=== PATIENT | male | born 1990 | race Caucasian/White ===

== ENCOUNTER 2016-10-13 13:23 | Emergency (ER) | payer BC, OTHER ==
[2016-10-13 13:37] VITALS: BP 129/72; PULSE 82; TEMP 98.5; BMI 24.2
--- NOTE | 2016-10-13 14:21 | PDOC ---
History of Present Illness - General History Source: Patient Exam Limitations: No Limitations - History of Present Illness Initial Comments: 10/13/16 14:35 Patient is a 26 year old male with no significant past medical history who presents to the ED with laceration to the left foot. Patient states that he stepped on broken glass barefoot. He notes that he is able to flex and wiggle the toes. Patient states that his Tetanus shot was last year. Patient denies fever, chills, nausea, vomiting, abdominal pain. He denies numbness or tingling of the left foot. <Sarah Jack - Last Filed: 10/13/16 17:01> - General History Source: Patient Exam Limitations: No Limitations <Gavi Smith - Last Filed: 10/14/16 11:13> - General Chief Complaint: Injury Stated Complaint: INJURY TO LEFT FOOT Time Seen by Provider: 10/13/16 13:26 Past History <Sarah Jack - Last Filed: 10/13/16 17:01> - Past Medical History Other medical history: pt denies - Immunization History Immunization Up to Date: Yes - Psycho/Social/Smoking Cessation Hx Anxiety: No Suicidal Ideation: No Smoking History: Never smoked Hx Alcohol Use: Yes (occassional) Drug/Substance Use Hx: No Substance Use Type: None <Gavi Smith - Last Filed: 10/14/16 11:13> - Past Medical History Allergies/Adverse Reactions: Allergies Allergy/AdvReac Type Severity Reaction Status Date / Time No Known Allergies Allergy Verified 10/13/16 13:25 Home Medications: Ambulatory Orders Cephalexin [Keflex] 250 mg PO Q6H #28 capsule 10/13/16 Tramadol HCl 50 mg PO TID PRN #15 tablet MDD 3 10/13/16 Review of Systems - Review of Systems Able to Perform ROS?: Yes Comments:: 10/13/16 14:36 GENERAL/CONSTITUTIONAL: No: fever, chills, weakness, loss of appetite. HEAD, EYES, EARS, NOSE AND THROAT: No: change in vision, ear pain, discharge, sore throat, throat swelling. CARDIOVASCULAR: No: chest pain, lightheadedness, palpitations, syncope RESPIRATORY: No: cough, shortness of breath, wheezing, hemoptysis, stridor. GASTROINTESTINAL: No: nausea, vomiting, abdominal cramping, diarrhea, rectal bleeding, constipation. GENITOURINARY: No: dysuria, hematuria, frequency, urgency, flank pain. MUSCULOSKELETAL: No: back pain, neck pain, joint pain, muscle swelling or pain SKIN: +laceration to the dorsum of the left foot. No: pallor, rash or easy bruising. NEUROLOGIC: No: headache, vertigo, paresthesias, weakness ENDOCRINE: No: unexplained weight gain or loss HEMATOLOGIC/LYMPHATIC: No: anemia, easy bleeding, swelling nodes <Sarah Jack - Last Filed: 10/13/16 17:01> *Physical Exam - Vital Signs Last Vital Signs Temp Pulse Resp BP Pulse Ox 98.5 F 82 18 129/72 100 10/13/16 13:24 10/13/16 13:24 10/13/16 13:24 10/13/16 13:24 10/13/16 13:24 - Physical Exam Comments: 10/13/16 14:53 GENERAL: The patient is in no acute distress. HEAD: Normal with no signs of trauma. EYES: PERRLA, EOMI, sclera anicteric, conjunctiva clear. ENT: Ears normal, nares patent, oropharynx clear without exudates. Moist mucous membranes. NECK: Normal range of motion, supple without lymphadenopathy, JVD, or masses. LUNGS: Breath sounds equal, clear to auscultation bilaterally. No wheezes, and no crackles. HEART:Regular rate and rhythm, normal S1 and S2 without murmur, rub or gallop. ABDOMEN: Soft, nontender, normoactive bowel sounds. No guarding, no rebound. EXTREMITIES: (+)capillary refill, bilateral pedal pulses 2+. Normal range of motion, no edema. No clubbing or cyanosis. No erythema, or tenderness. NEUROLOGICAL: Cranial nerves II through XII grossly intact. Normal speech. No focal neurological deficits. MUSCULOSKELETAL: Back nontender to palpation, no CVA tenderness SKIN: (+)5 cm laceration to the bottom of the left foot. Warm, Dry, normal turgor, no rashes. <Sarah Jack - Last Filed: 10/13/16 17:01> - Vital Signs Last Vital Signs Temp Pulse Resp BP Pulse Ox 98.5 F 82 18 129/72 100 10/13/16 13:24 10/13/16 13:24 10/13/16 13:24 10/13/16 13:24 10/13/16 13:24 <Gavi Smith - Last Filed: 10/14/16 11:13> Procedures - Laceration/Wound Repair Left Plantar Foot Wound Length: 2.6 to 5.0 cm Wound Explored: clean Wound's Depth, Shape: into muscle Irrigated w/ Saline: Yes Betadine Prep: Yes Anesthesia: 1% Lidocaine Amount of Anesthetic (ccs): 4 Wound Debrided: minimal Wound Repaired With: Sutures Suture Size/Type: 3:0, nylon Number of Sutures: 5 Layer Closure: No Sterile Dressing Applied: Yes Splint Applied: No <Gavi Smith - Last Filed: 10/14/16 11:13> Medical Decision Making - Medical Decision Making 10/13/16 16:46 Pt s/p laceration of the left foot after stepping on a glass bottle Laceration 2cm, v shaped 5 Sutures placed Very challenging as pt very sensitive and it was difficult to thoroughly anesthetize Tetanus UTD 10/13/16 18:15 Pt discharge to home Bulky dressing placed on foot for protection Pt given crutches Pt asked to monitor for signs of infection Antibiotics and pain medications as needed 10/14/16 11:04 <Gavi Smith - Last Filed: 10/14/16 11:13> *DC/Admit/Observation/Transfer - Attestations Scribe Attestion: 10/13/16 14:36 Documentation prepared by ELI Fuentes, acting as ophthalmic medical technician for Gavi Smith MD. <Sarah Jack - Last Filed: 10/13/16 17:01> - Discharge Dispostion Admit: No <Gavi Smith - Last Filed: 10/14/16 11:13> Diagnosis at time of Disposition: Laceration of foot Qualifiers: Encounter type: initial encounter Laterality: left Qualified Code(s): S91.312A - Laceration without foreign body, left foot, initial encounter - Discharge Dispostion Disposition: HOME Condition at time of disposition: Stable - Prescriptions Prescriptions: Cephalexin [Keflex] 250 mg PO Q6H #28 capsule Tramadol HCl 50 mg PO TID PRN #15 tablet MDD 3 PRN Reason: Pain - Patient Instructions Printed Discharge Instructions: DI for Suture Removal, DI for Laceration Repair -- Simple Additional Instructions: Thank you for coming in to the ER today Please keep dressing applied for 24 hours Please avoid getting your foot wet or soaked for 48 hours Sutures to remain in place for at least 10 days Please use crutches as much as is possible to avoid re injurying your foot Please take pain medications as prescribed and antibiotics as prescribed You should also apply a topical antibacterial ointment directly to your wound twice daily Return to the ER for any signs of infection, red skin around your laceration, warmth, drainage, increased pain - Post Discharge Activity Work/School Note: Back to Work
[2016-10-13] MEDS ORDERED: LIDOCAINE HCL 1%, 10 MG/ML (20ML VIAL) ONE (15:32)
== END 2016-10-13 17:11 | disposition home or self-care (01) ==
LOC: FER 13:23
PROC: 0HQNXZZ Repair Left Foot Skin, External Approach (ICD-10-PCS; principal; 2016-10-13)
DX: S91.312A Laceration without foreign body, left foot, initial encounter (principal); W25.XXXA Contact with sharp glass, initial encounter; Y93.89 Activity, other specified; Y92.9 Unspecified place or not applicable
CPT/HCPCS: 12002-25; 73630-TC-LT; 99282-25

== ENCOUNTER 2021-08-06 21:48 | Day surgery (SDC) | payer OTHER ==
[2021-08-06] MEDS ORDERED: SODIUM CHLORIDE 1,000 ML IV ONE (22:13)
[2021-08-06] MEDS ORDERED: morphine CARPU-JECT 2 MG/1 ML DISP.SYRIN IVPUSH ONE (22:13)
[2021-08-06] MEDS ORDERED: ONDANSETRON 4 MG/2 ML VIAL IVPB ONE (22:14)
[2021-08-06] MEDS ORDERED: morphine SULFATE 4 MG/ML VIAL ONE (22:23)
[2021-08-06] MEDS ORDERED: ONDANSETRON 4 MG/2 ML VIAL ONE (22:23)
[2021-08-06 22:49] LABS: ALBUMIN 4.9 g/dl (3.4-5.0); BILIRUBIN,TOTAL 1.2 mg/dl (0.2-1); CALCIUM 10.1 mg/dl (8.5-10); TOT PROT 8.1 g/dl (6.4-8.2)
[2021-08-06] MEDS ORDERED: HYDROmorphone HCL CARPU-JECT 1 MG/1 ML DISP.SYRIN IVPUSH ONE (23:01)
[2021-08-06] MEDS ORDERED: HYDROmorphone HCL/PF 1 MG/ML VIAL ONE (23:02)
[2021-08-06 23:47] LABS: BASO % 0.1 % (0-2.0); EOS % 0.1 % (0-4.5); MCHC 35.8 g/dl (32.0-35.9)
[2021-08-06 23:53] LABS: HEMATOCRIT 43.5 % (35.4-49); HEMOGLOBIN 15.6 GM/dL (11.7-16.9); LYMPH % 4.5 % (8-40); MCH 28.8 pg (25.7-33.7); MEAN CELL VOLUME 80.2 fl (80-96); MEAN PLT VOLUME 7.8 fl (7.5-11.1); MONO % 7.7 % (3.8-10.2); NEUT % 87.6 % (42.8-82.8); PLATELET COUNT 211 10^3/uL (134-434); RBC 5.42 M/mm3 (4.00-5.60); RDW 13.1 % (11.9-15.9); WHITE BLOOD COUNT 14.5 K/mm3 (4.0-10.0)
[2021-08-07] MEDS ORDERED: VANCOMYCIN 1 GM in D5W (PRE-DOCKED) 1,000 MG/250 ML IVPB ONE (00:03)
[2021-08-07] MEDS ORDERED: PIPERACILLIN/TAZOBACTAM 4.5 GM VIAL IVPB ONE ×3 (00:03→09:04)
[2021-08-07] MEDS ORDERED: PIPERACILLIN/TAZOB 4.5 GM 4.5 GM in DEXTROSE 5%-WATER 100 ML IVPB ONE (00:03)
[2021-08-07] MEDS ORDERED: VANCOMYCIN 1,000 MG VIAL (RESTRICTED TO ID ONLY) ONE (00:03)
[2021-08-07] MEDS ORDERED: HYDROmorphone HCL CARPU-JECT 1 MG/1 ML DISP.SYRIN IVPUSH ONE (00:17)
[2021-08-07] MEDS ORDERED: HYDROmorphone HCL/PF 1 MG/ML VIAL ONE (00:18)
[2021-08-07] MEDS ORDERED: ACETAMINOPHEN 1000 MG/100 ML BAG IVPB PRN ×2 (00:21→17:20)
[2021-08-07] MEDS ORDERED: DEXTROSE 5%-0.45% SALINE 1,000 ML IV SCH ×2 (00:30→17:20)
[2021-08-07 02:25] VITALS: BMI 25.2
[2021-08-07] MEDS ORDERED: morphine SULFATE 4 MG/ML VIAL IVPUSH PRN (03:52)
[2021-08-07] MEDS ORDERED: DEXTROSE 5%-WATER 100 ML IVPB ONE ×2 (06:33→09:03)
[2021-08-07] MEDS: PIPERACILLIN/TAZOB 4.5 GM 4.5 GM in DEXTROSE 5%-WATER 100 ML IVPB SCH ×2 (06:35→10:08)
[2021-08-07 07:36] LABS: INR 1.47 (0.83-1.09)
[2021-08-07 07:44] LABS: CALCIUM 8.7 mg/dl (8.5-10); CREATININE 1.1 mg/dl (0.55-1.3)
[2021-08-07] MEDS ORDERED: ROCURONIUM BROMIDE 50 MG/5 ML SYRINGE ONE (13:23)
[2021-08-07] MEDS ORDERED: DEXAMETHASONE SOD PHOSPHATE 4 MG/1 ML VIAL ONE (13:23)
[2021-08-07] MEDS ORDERED: KETOROLAC TROMETHAMINE 30 MG/1 ML VIAL ONE (13:23)
[2021-08-07] MEDS ORDERED: fentaNYL CITRATE 250 MCG/5 ML VIAL ONE (13:23)
[2021-08-07] MEDS ORDERED: LIDOCAINE HCL/PF 2% SDV 5ML VIAL ONE (13:23)
[2021-08-07] MEDS ORDERED: MIDAZOLAM HCL 2 MG/2 ML SINGLE DOSE VIAL ONE ×2 (13:23)
[2021-08-07] MEDS ORDERED: ONDANSETRON 4 MG/2 ML VIAL ONE ×2 (13:23→15:43)
[2021-08-07] MEDS ORDERED: PROPOFOL 20 ML ONE ×2 (13:23→14:54)
[2021-08-07] MEDS ORDERED: BUPIVACAINE HCL 50 ML ONE (13:56)
[2021-08-07] MEDS ORDERED: NEOSTIGMINE METHYLSULFATE 0.5 MG/1 ML - 10 ML MDV ONE (14:52)
[2021-08-07] MEDS ORDERED: GLYCOPYRROLATE 0.2 MG/1 ML VIAL ONE ×2 (14:52→15:04)
[2021-08-07] MEDS ORDERED: BUPIVACAINE HCL 100 ML ONE (14:58)
[2021-08-07] MEDS ORDERED: BUPIVACAINE HCL/PF 0.5% (5MG/ML) 10 ML VIAL IJ ONE ×2 (15:06)
[2021-08-07] MEDS ORDERED: ONDANSETRON 4 MG/2 ML VIAL IVPUSH PRN (15:26)
[2021-08-07 15:27] LABS: BASO % 0.2 % (0-2.0); EOS % 0.3 % (0-4.5); HEMATOCRIT 38.9 % (35.4-49); LYMPH % 13.4 % (8-40); MCH 29.2 pg (25.7-33.7); MCHC 35.9 g/dl (32.0-35.9); MEAN CELL VOLUME 81.3 fl (80-96); MEAN PLT VOLUME 7.9 fl (7.5-11.1); MONO % 10.4 % (3.8-10.2); NEUT % 75.7 % (42.8-82.8); PLATELET COUNT 187 10^3/uL (134-434); RBC 4.79 M/mm3 (4.00-5.60); RDW 12.8 % (11.9-15.9); WHITE BLOOD COUNT 11.1 K/mm3 (4.0-10.0)
[2021-08-07] MEDS ORDERED: oxyCODONE HCL 5 MG TABLET PO PRN ×2 (15:28)
[2021-08-07] MEDS ORDERED: KETOROLAC TROMETHAMINE 30 MG/1 ML VIAL IVPUSH PRN (15:29)
[2021-08-07] MEDS ORDERED: LACTATED RINGERS SOLUTION 1,000 ML IV SCH (15:30)
[2021-08-07] MEDS: ACETAMINOPHEN 1000 MG/100 ML BAG IVPB ONE ×2 (15:31→17:13)
[2021-08-07] MEDS ORDERED: PIPERACILLIN/TAZOBACTAM 3.375 GM VIAL IVPB ONE (17:38)
[2021-08-07] MEDS ORDERED: DEXTROSE 5%-WATER - 50 ML IVPB ONE (17:38)
[2021-08-07] MEDS: PIPERACILLIN/TAZOB 3.375 GM 3.375 GM in DEXTROSE 5%-WATER - 50 ML IVPB SCH (17:41)
[2021-08-07] MEDS ORDERED: PIPERACILLIN/TAZOB 3.375 GM 3.375 GM in DEXTROSE 5%-WATER - 50 ML IVPB SCH (18:00)
[2021-08-08] MEDS ORDERED: PIPERACILLIN/TAZOBACTAM 3.375 GM VIAL IVPB ONE ×2 (01:20→08:42)
[2021-08-08] MEDS ORDERED: DEXTROSE 5%-WATER - 50 ML IVPB ONE ×2 (01:20→08:42)
[2021-08-08] MEDS: PIPERACILLIN/TAZOB 3.375 GM 3.375 GM in DEXTROSE 5%-WATER - 50 ML IVPB SCH ×2 (01:54→09:32)
[2021-08-08] MEDS ORDERED: PIPERACILLIN/TAZOB 4.5 GM 4.5 GM in DEXTROSE 5%-WATER 100 ML IVPB SCH (03:00)
[2021-08-08 09:18] VITALS: BP 105/52; PULSE 81; TEMP 97.6
[2021-08-08] MEDS ORDERED: DOCUSATE SODIUM 100 MG CAPSULE (FP) PO SCH (10:00)
[2021-08-08 10:12] LABS: ALBUMIN 3.6 g/dl (3.4-5.0); CALCIUM 8.9 mg/dl (8.5-10); CREATININE 1.2 mg/dl (0.55-1.3); TOT PROT 6.5 g/dl (6.4-8.2)
[2021-08-08 13:26] LABS: HEMATOCRIT 37.8 % (35.4-49); HEMOGLOBIN 13.4 GM/dL (11.7-16.9); MEAN CELL VOLUME 81.8 fl (80-96); RBC 4.62 M/mm3 (4.00-5.60)
[2021-08-08 13:27] LABS: BASO % 0.1 % (0-2.0); LYMPH % 6.1 % (8-40); MCH 28.9 pg (25.7-33.7); MCHC 35.3 g/dl (32.0-35.9); MONO % 4.2 % (3.8-10.2); NEUT % 89.6 % (42.8-82.8); PLATELET COUNT 206 10^3/uL (134-434); RDW 13.1 % (11.9-15.9)
== END 2021-08-08 12:03 | disposition home or self-care (01) ==
LOC: FER 21:48 → UNDOADMOB 08-07 00:28 → FM/S 08-07 00:28 → FASUSAT 08-07 09:31 → FM/S 08-07 11:04 → FASUSAT 08-07 11:04
PROVIDERS: ATTEND Nurse Practitioner Acute Care
PROC: 3E033GC Introduction of Other Therapeutic Substance into Peripheral Vein, Percutaneous Approach (ICD-10-PCS; principal; 2021-08-06)
DX: K35.80 Unspecified acute appendicitis (principal)
CPT/HCPCS: 36415; 71045-TC-FY; 74177-TC; 80048; 80053; 81003; 81015; 83690; 85025; 85610; 87040; 88304-TC; 93005; 94760; 99285-25; C9803-CS; Q9967; U0003; U0005